=== PATIENT | female | born 2005 | race Caucasian/White ===

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

== ENCOUNTER 2024-03-24 16:35 | Outpatient (CLI) | payer OTHER, SELFPAY | END 2024-03-24 16:36 | disposition home or self-care (01) | LOC: ANHLAB 16:37 | PROVIDERS: PCP Family Medicine; Visit Provider Physician Assistant Medical | DX: E03.9 Hypothyroidism, unspecified (principal) | CPT/HCPCS: 36415; 84439; 84443 ==